=== PATIENT | male | born 1950 | race Caucasian/White ===

== ENCOUNTER → 2025-03-24 10:58 | Outpatient (REF) | payer BC, MEDICARE, SELFPAY | LOC: HWRCS 10:58 | PROVIDERS: ATTENDING PHYSICIAN Nuclear Medicine Nuclear Cardiology; FAMILY PHYSICIAN Family Medicine; REFERRING PHYSICIAN Internal Medicine Cardiovascular Disease | DX: I48.0 Paroxysmal atrial fibrillation (principal); E78.2 Mixed hyperlipidemia; I45.2 Bifascicular block | CPT/HCPCS: 93306 ==